=== PATIENT | male | born 1945 | race Caucasian/White ===

== ENCOUNTER 2025-04-13 10:43 | Inpatient (IN) | payer MEDICARE, OTHER ==
[2025-04-13 12:10] LABS: PLATELET COUNT,PLT 43 K/uL (130-375); RED BLOOD CELL COUNT 3.52 M/uL (4.14-5.76); WHITE BLOOD CELL COUNT,WBC 4.8 K/uL (3.2-11.0)
[2025-04-13 12:33] LABS: LACTIC ACID 2.5 mmol/L (0.4-2.0)
[2025-04-13 12:35] LABS: A/G RATIO 0.8 (1.2-2.2); ALANINE AMINOTRANSFERASE,ALT 38 U/L (12-78); ASPARTATE AMNIOTRANSFERASE,AST 43 U/L (15-37); BILIRUBIN TOTAL 1.2 mg/dL (0.2-1.0); BLOOD UREA NITROGEN,BUN 15 mg/dL (7-18); CARBON DIOXIDE,CO2 30 mmol/L (21-32); CHLORIDE,CL 93 mmol/L (100-108); CREATININE 0.7 mg/dL (0.8-1.3); EST CRCL DRUG DOSING (CG) 97.00 mL/min; ESTIMATED GFR 95 mL/min (>60); GLUCOSE RANDOM 135 mg/dL (74-106); POTASSIUM,K 3.7 mmol/L (3.6-5.2); PROTEIN TOTAL,TP 7.2 g/dL (6.4-8.2); SODIUM,NA 129 mmol/L (140-148)
[2025-04-13] MEDS: Acetylcysteine 20% 200 MG/ML 4 ML Nebulizer Soln SDV NEB ONE (12:36)
[2025-04-13] MEDS: methylPREDNISolone Sodium Succinate 125 MG/2 ML SDV IM ONE (12:36)
[2025-04-13 12:46] LABS: BAND ABSOLUTE MAN 0.14 K/uL; BAND PERCENT MAN 3 % (5-11); BASOPHILS ABSOLUTE MAN 0.14 K/uL (0.00-0.10); BASOPHILS PERCENT MAN 3 % (0-1); EOSINOPHILS ABSOLUTE MAN 0.19 K/uL (0.00-0.40); EOSINOPHILS PERCENT MAN 4 % (2-4); LYMPHOCYTES ABSOLUTE MAN 0.86 K/uL (0.8-3.3); LYMPHOCYTES PERCENT MAN 18 % (24-44); MONOCYTES ABSOLUTE MAN 0.24 K/uL (0.20-0.90); MONOCYTES PERCENT MAN 5 % (2-6); NEUTROPHILS ABSOLUTE MAN 3.22 K/uL (1.0-7.6); NRBC MANUAL 3; SEG NEUTROPHILS PERCENT MAN 67 % (36-66)
[2025-04-13] MEDS ORDERED: Doxycycline Susp 25 MG/5 ML 60 ML Bottle PO SCH (13:00)
[2025-04-13 13:27] LABS: APPEARANCE,URINE CLEAR (CLEAR); GLUCOSE,URINE >=1000 mg/dL (NEGATIVE); OCCULT BLOOD,URINE TRACE-INTACT (NEGATIVE)
[2025-04-13 13:42] LABS: SQUAMOUS EPITHELIAL CELLS,UR NOT SEEN /HPF; UROTHELIAL CELLS,URINE NOT SEEN /HPF
[2025-04-13 14:56] LABS: CORONAVIRUS COVID-19 NAA NEGATIVE (NEGATIVE); INFLUENZA A NAA NEGATIVE (NEGATIVE); INFLUENZA B NAA NEGATIVE (NEGATIVE); RESPIRATORY SYNCYTIAL VIR NAA NEGATIVE (NEGATIVE)
[2025-04-13] MEDS ORDERED: Ondansetron 4 MG Tab.DIS PO PRN (17:44)
[2025-04-13] MEDS ORDERED: guaiFENesin/Dextromethorphan 100-10 MG/5 ML Soln 10 ML Cup PO PRN (17:44)
[2025-04-13] MEDS ORDERED: Ondansetron 4 MG/2 ML SDV IV PRN (17:44)
[2025-04-13] MEDS: Lactobacillus Rhamnosus GG (Probiotic) Cap PO SCH (20:45)
[2025-04-13] MEDS: methylPREDNISolone Sodium Succinate 125 MG/2 ML SDV IVPUSH ONE (22:50)
[2025-04-14] MEDS: Albuterol 0.083% 2.5 MG/3 ML Neb Soln NEB PRN (05:30)
[2025-04-14 05:48] LABS: PLATELET COUNT,PLT 151.0 K/uL (130-375); RED BLOOD CELL COUNT 3.43 M/uL (4.14-5.76); WHITE BLOOD CELL COUNT,WBC 6.6 K/uL (3.2-11.0)
[2025-04-14 06:00] LABS: BLOOD UREA NITROGEN,BUN 15.0 mg/dL (7-18); CARBON DIOXIDE,CO2 26.0 mmol/L (21-32); CHLORIDE,CL 94.0 mmol/L (100-108); CREATININE 0.6 mg/dL (0.8-1.3); EST CRCL DRUG DOSING (CG) 113.17 mL/min; ESTIMATED GFR 99.0 mL/min (>60); GLUCOSE RANDOM 166.0 mg/dL (74-106); POTASSIUM,K 4.6 mmol/L (3.6-5.2); SODIUM,NA 130.0 mmol/L (140-148)
[2025-04-14] MEDS: Calcium Carbonate/Vitamin D3 1500 MG-400 Units Tab PO SCH (09:39)
[2025-04-14] MEDS: Cyanocobalamin (Vitamin B12) 1,000 MCG Tab PO SCH (09:42)
[2025-04-14] MEDS: Sennosides/Docusate Sodium 50-8.6 MG Tab PO PRN (15:18)
[2025-04-15] MEDS: Magnesium Hydroxide 400 MG/5 ML Susp 30 ML Cup PO PRN (06:26)
[2025-04-16 05:29] LABS: PLATELET COUNT,PLT 31.0 K/uL (130-375); RED BLOOD CELL COUNT 3.3 M/uL (4.14-5.76); WHITE BLOOD CELL COUNT,WBC 5.5 K/uL (3.2-11.0)
[2025-04-16 05:50] LABS: BLOOD UREA NITROGEN,BUN 18.0 mg/dL (7-18); CARBON DIOXIDE,CO2 26.0 mmol/L (21-32); CHLORIDE,CL 94.0 mmol/L (100-108); CREATININE 0.7 mg/dL (0.8-1.3); EST CRCL DRUG DOSING (CG) 97.14 mL/min; ESTIMATED GFR 95.0 mL/min (>60); GLUCOSE RANDOM 118.0 mg/dL (74-106); POTASSIUM,K 4.1 mmol/L (3.6-5.2); SODIUM,NA 130.0 mmol/L (140-148)
[2025-04-16] MEDS: Fluconazole/Normal Saline 200 MG in Premix Bag 1 BAG IV SCH (10:49)
[2025-04-16] MEDS ORDERED: Fluconazole/Normal Saline 100 MG in Premix Bag 1 BAG IV SCH (11:00)
[2025-04-17 08:43] LABS: PLATELET COUNT,PLT 30.0 K/uL (130-375); RED BLOOD CELL COUNT 3.21 M/uL (4.14-5.76); WHITE BLOOD CELL COUNT,WBC 4.4 K/uL (3.2-11.0)
[2025-04-17 09:04] LABS: A/G RATIO 0.7 (1.2-2.2); ALANINE AMINOTRANSFERASE,ALT 42 U/L (12-78); ASPARTATE AMNIOTRANSFERASE,AST 41 U/L (15-37); BILIRUBIN TOTAL 1.3 mg/dL (0.2-1.0); BLOOD UREA NITROGEN,BUN 18 mg/dL (7-18); CARBON DIOXIDE,CO2 29 mmol/L (21-32); CHLORIDE,CL 94 mmol/L (100-108); CREATININE 0.8 mg/dL (0.8-1.3); EST CRCL DRUG DOSING (CG) 84.99 mL/min; ESTIMATED GFR 91 mL/min (>60); GLUCOSE RANDOM 134 mg/dL (74-106); POTASSIUM,K 4.0 mmol/L (3.6-5.2); PROTEIN TOTAL,TP 6.8 g/dL (6.4-8.2); SODIUM,NA 130 mmol/L (140-148)
== END 2025-04-17 14:22 | disposition home or self-care (01) | DRG 871 ==
LOC: JP.ED 10:43 → JP.MS 17:07
PROVIDERS: ADMIT Internal Medicine; ATTEND Student in an Organized Health Care Education/Training Program
DX: A41.89 Other specified sepsis (principal); J16.8 Pneumonia due to other specified infectious organisms; J96.01 Acute respiratory failure with hypoxia; J44.0 Chronic obstructive pulmonary disease with (acute) lower respiratory infection; A41.9 Sepsis, unspecified organism; C77.8 Secondary and unspecified malignant neoplasm of lymph nodes of multiple regions; D84.9 Immunodeficiency, unspecified; J44.1 Chronic obstructive pulmonary disease with (acute) exacerbation; Z66 Do not resuscitate; R65.20 Severe sepsis without septic shock; C61 Malignant neoplasm of prostate; F17.200 Nicotine dependence, unspecified, uncomplicated; I10 Essential (primary) hypertension; D69.6 Thrombocytopenia, unspecified; Z79.899 Other long term (current) drug therapy; J18.9 Pneumonia, unspecified organism; Z79.02 Long term (current) use of antithrombotics/antiplatelets
CPT/HCPCS: 36415; 71046 ×2; 80053; 81001; 83605 ×2; 84484; 85025; 86140; 87040 ×2; 87637; 93005; 94640; 96365; 96372; 99285; A9270 ×2; J0696; J2919; J7030; 80048; 85027; 87070; 87077; 87205; 97161-GP; 97530-GP; 99232; 99233; 99238; J1450; J7512